=== PATIENT | female | born 1965 | race Caucasian/White ===

== ENCOUNTER 2017-08-18 15:16 | Outpatient (CLI) | payer BC ==
--- NOTE | 2017-08-18 20:58 | MRI ---
MRI CERVICAL SPINE: Technique: Multiplanar, multisequential imaging of the cervical spine obtained. History: Cervical radiculopathy. Shoulder pain. FINDINGS: Evidence of prior anterior fusion procedure with evidence of anterior plate and screws at C5, C6 and C7 levels. Vertebral body alignment appears preserved. There is mild loss of anterior height at C4. Prominent os teophytes at C3-4 and C4-5. C4-5: There is a broad based disc bulge with small focal protrusion centrally which impinges and flat tens the anterior cord. There is mild bilateral foraminal encroachment at this level due to the broad based disc bulge and uncinate hypertrophy. No other evidence of significant disc bulge or protrusion. Mild spondylosis at C5-6 from prior fusion . This effaces the anterior subarachnoid space. C6-7: Mild disc bulge and spondylosis. However, the anterior subarachnoid space is preserved. There i s mild left foraminal encroachment at C6-7 due to uncinate hypertrophy. Cord signal appears normal. IMPRESSION: 1. Broad based disc bulge with central protrusion at C4-5 impinging on the cord. 2. Prior anterior fusion procedure as described above. POS: [facility]
== END 2017-08-18 15:17 | disposition home or self-care (01) ==
LOC: TBSIIMAG 15:16
PROVIDERS: ATTEND Neurological Surgery
DX: M50.121 Cervical disc disorder at C4-C5 level with radiculopathy (principal); Z98.1 Arthrodesis status
CPT/HCPCS: 72141

== ENCOUNTER 2017-11-06 22:21 | Emergency (ER) | payer BC ==
[2017-11-06] MEDS ORDERED: HYDROcodone/Acetaminophen 5/325 mg Tablet ONE (22:42)
[2017-11-06] MEDS ORDERED: Ketorolac Tromethamine 30 MG/ML VIAL ONE (22:43)
== END 2017-11-06 23:27 | disposition home or self-care (01) ==
LOC: ERS 22:21
DX: M25.562 Pain in left knee (principal); E03.9 Hypothyroidism, unspecified; F32.9 Major depressive disorder, single episode, unspecified
CPT/HCPCS: 96372; J1885

== ENCOUNTER 2017-12-26 12:37 | Outpatient (CLI) | payer BC ==
--- NOTE | 2017-12-26 14:33 | MRI ---
MRI LUMBAR SPINE WITHOUT CONTRAST: HISTORY: Intervertebral disk disorder with radiculopathy. Left-sided sciatica. [facility] in September. COMPARISON: None. TECHNIQUE: MRI lumbar spine is performed without intravenous Gadolinium administration. Multisequential, multip lanar imaging was performed. FINDINGS: Appropriate T1 marrow signal intensity of the lumbar vertebrae. Ls vertebral body height is maintain ed. No fracture. No significant STIR hyperintensity to suggest edema or ligamentous injury. Symmetric signal intensity of the psoas muscles. The visualized solid organs are unremarkable. Conus medullaris terminates at the superior aspect of L1. T12-L1: No significant central canal stenosis or foraminal narrowing. L1-L2: No significant central canal stenosis or foraminal narrowing. Minimal posterior element hype rtrophy. Very small synovial cyst measuring 2 mm may be present. Neural foramina are patent. L2-L3: Mild loss of disk space height. No significant posterior disk abnormality. No significant c entral canal stenosis. Neural foramen are patent. Minimal right paracentral disk bulge. L3-L4: Generalized disk bulge, ligamentum flavum thickening, and facet hypertrophy result in mild ce ntral canal stenosis. Narrowing of both subarticular zones with partial obscuration of bilateral tra versing L4 nerve roots. A 2 mm synovial cyst is present in the left posterior element. Mild to mode rate bilateral foraminal narrowing. L4-L5: Adequate disk hydration. No significant posterior disk abnormality. There is mild facet hyp ertrophy. No significant central canal stenosis. Right neural foramen is patent. Mild left foramin al narrowing. L5-S1: There is a generalized disk bulge with inferior disk extrusion into both subarticular zones. There is no significant stenosis of the thecal sac. Disk material abuts but does not obscure either traversing S1 nerve root. Mild right and moderate left foraminal narrowing. IMPRESSION: Degenerative change of the lumbar spine as above. POS: [facility]
== END 2017-12-26 12:38 | disposition home or self-care (01) ==
LOC: TBSIIMAG 12:37
PROVIDERS: ATTEND Specialist
DX: M51.16 Intervertebral disc disorders with radiculopathy, lumbar region (principal); M47.896 Other spondylosis, lumbar region
CPT/HCPCS: 72148

== ENCOUNTER 2018-06-12 13:48 | Outpatient (CLI) | payer BC ==
--- NOTE | 2018-06-12 15:13 | MRI ---
MRI LUMBAR SPINE WITHOUT CONTRAST: HISTORY: Lumbar radiculopathy. Left leg sciatica for a few years. COMPARISON: 12/26/2017 TECHNIQUE: An MRI of the lumbar spine is performed without intravenous Gadolinium administration. Multiplanar, multisequence imaging is performed. FINDINGS: Appropriate T1 marrow signal intensity of the lumbar vertebrae. Vertebral body height is maintained. There is no fracture. No spondylolisthesis or spondylolysis. No significant STIR hyperintensity t o suggest edema of the vertebral bodies. No MR evidence of ligamentous injury. Symmetric signal intensity of the psoas muscles. Appropriate signal intensity of the visualized audrey d organs. The conus medullaris terminates at the superior aspect of L1. T12-L1: Adequate disk hydration. No significant central canal stenosis. The neural foramina are pa tent. L1-L2: Adequate disk hydration. No significant central canal stenosis. The foramina are patent. L2-L3: Adequate disk hydration. No significant central canal stenosis. The foramina are patent. L3-L4: Desiccation with moderate loss of disk space height. Generalized disk bulge, ligamentum flav um thickening, and facet hypertrophy result in mild central canal stenosis. Narrowing of both subart icular zones. Partial obscuration of bilateral traversing L4 nerve root. Mild bilateral foraminal n arrowing. Stable degree of central canal stenosis. L4-L5: Adequate disk hydration. No significant posterior disk abnormality. Mild ligamentum flavum thickening and facet hypertrophy. No significant central canal stenosis. The right neural foramen i s patent. Mild left foraminal narrowing. L5-S1: Adequate disk hydration. No significant loss of disk space height. No significant posterior disk abnormality. No significant central canal stenosis. Mild right and moderate to severe left fo raminal narrowing. The degree of left foraminal stenosis is unchanged. IMPRESSION: 1. Interval resolution of previously suggested small synovial cyst at L3-L4 and at L1-L2. 2. Stable central canal stenosis and foraminal narrowing. POS: [facility]
== END 2018-06-12 13:49 | disposition home or self-care (01) ==
LOC: TBSIIMAG 13:48
PROVIDERS: ATTEND Neurological Surgery
DX: M54.16 Radiculopathy, lumbar region (principal); M48.061 Spinal stenosis, lumbar region without neurogenic claudication; M99.83 Other biomechanical lesions of lumbar region; M71.38 Other bursal cyst, other site
CPT/HCPCS: 72148

== ENCOUNTER 2021-06-11 12:30 | Outpatient (CLI) | payer OTHER | END 2021-06-11 12:31 | disposition home or self-care (01) | LOC: TBSIIMAG 12:30 | PROVIDERS: ATTEND Neurological Surgery | DX: M51.16 Intervertebral disc disorders with radiculopathy, lumbar region (principal) | CPT/HCPCS: 72148 ==

== ENCOUNTER 2021-07-03 10:23 | Outpatient (CLI) | payer OTHER ==
[2021-07-03 20:37] LABS: SARS-CoV-2 PCR by NAA Not Detected (NotDetected)
== END 2021-07-03 10:24 | disposition home or self-care (01) ==
LOC: LABBT 10:23
PROVIDERS: ATTEND Neurological Surgery
DX: Z01.812 Encounter for preprocedural laboratory examination (principal); M54.16 Radiculopathy, lumbar region; Z20.822 Contact with and (suspected) exposure to COVID-19
CPT/HCPCS: U0003; U0005

== ENCOUNTER 2021-07-06 07:25 | Day surgery (SDC) | payer OTHER ==
[2021-07-05 15:01] VITALS: BMI 33.6
[2021-07-06] MEDS ORDERED: ceFAZolin 2 GM/DEX 5% 100 ML BAG ONE ×2 (08:05→13:07)
[2021-07-06] MEDS ORDERED: Scopolamine 1.5 mg/72 hour Patch ONE (09:58)
[2021-07-06] MEDS ORDERED: HYDROmorphone 2 MG/ML VIAL ONE (10:00)
[2021-07-06] MEDS ORDERED: Fentanyl 100 MCG/2 ML VIAL ONE (10:00)
[2021-07-06] MEDS ORDERED: Midazolam HCl 2 mg/2 ml Vial ONE (10:00)
[2021-07-06] MEDS ORDERED: Thrombin 5000 UNITS/5 ML VIAL ONE (10:04)
[2021-07-06] MEDS ORDERED: Bupivacaine PF 0.5% 30 ML VIAL ONE (10:04)
[2021-07-06] MEDS ORDERED: EPINEPHrine 1 MG/ML AMP ONE (10:04)
[2021-07-06] MEDS ORDERED: ePHEDrine 50 MG/ML VIAL ONE (10:25)
[2021-07-06] MEDS ORDERED: Dexamethasone 20 MG/5 ML VIAL ONE (10:25)
[2021-07-06] MEDS ORDERED: Ondansetron PF 4 MG/2 ML Vial ONE (10:25)
[2021-07-06] MEDS ORDERED: Glycopyrrolate 0.2 MG/ML 5 ML SYRINGE ONE (10:25)
[2021-07-06] MEDS ORDERED: PROPOFOL 200 MG/20 ML VIAL ONE (10:25)
[2021-07-06] MEDS ORDERED: Metoclopramide HCl 10 MG/2 ML VIAL ONE (10:25)
[2021-07-06] MEDS ORDERED: Lidocaine 1% PF 5 ML VIAL ONE (10:25)
[2021-07-06] MEDS ORDERED: Rocuronium Bromide 10 MG/ML (10ML VIAL) ONE (10:25)
== END 2021-07-06 13:56 | disposition home or self-care (01) ==
LOC: SDC 07:25
PROVIDERS: ATTEND Neurological Surgery
PROC: 01NB0ZZ Release Lumbar Nerve, Open Approach (ICD-10-PCS; principal; 2021-07-06)
DX: M48.061 Spinal stenosis, lumbar region without neurogenic claudication (principal); M51.16 Intervertebral disc disorders with radiculopathy, lumbar region; M25.78 Osteophyte, vertebrae; E03.9 Hypothyroidism, unspecified; M19.90 Unspecified osteoarthritis, unspecified site; J30.2 Other seasonal allergic rhinitis; Z79.899 Other long term (current) drug therapy
CPT/HCPCS: 76000; J0171; J1100; J1170; J2250; J2405; J2704; J2765; J3010; J3490; S0020

== ENCOUNTER 2021-10-23 08:22 | Outpatient (CLI) | payer OTHER | END 2021-10-23 08:23 | disposition home or self-care (01) | LOC: TBSIIMAG 08:22 | PROVIDERS: ATTEND Neurological Surgery | DX: M47.26 Other spondylosis with radiculopathy, lumbar region (principal); Z98.890 Other specified postprocedural states | CPT/HCPCS: 72158 ==

== ENCOUNTER 2023-01-28 13:39 | Outpatient (CLI) | payer OTHER | END 2023-01-28 13:40 | disposition home or self-care (01) | LOC: SCSMRI 13:39 | PROVIDERS: ATTEND Neurological Surgery | DX: M47.26 Other spondylosis with radiculopathy, lumbar region (principal); M51.16 Intervertebral disc disorders with radiculopathy, lumbar region; M48.061 Spinal stenosis, lumbar region without neurogenic claudication; M48.07 Spinal stenosis, lumbosacral region | CPT/HCPCS: 72158 ==

== ENCOUNTER 2023-01-31 13:25 | Outpatient (CLI) | payer OTHER | END 2023-01-31 13:26 | disposition home or self-care (01) | LOC: TBSIIMAG 13:25 | PROVIDERS: ATTEND Neurological Surgery | DX: M54.50 Low back pain, unspecified (principal); M47.816 Spondylosis without myelopathy or radiculopathy, lumbar region; M25.552 Pain in left hip | CPT/HCPCS: 72100 ==